=== PATIENT | female | born 1965 | race Two or more races ===

== ENCOUNTER 2018-06-16 08:09 | Outpatient (CLI) | payer OTHER | END 2018-06-16 08:16 | disposition home or self-care (01) | LOC: MRI 08:09 | DX: M17.11 Unilateral primary osteoarthritis, right knee (principal); M17.12 Unilateral primary osteoarthritis, left knee; M22.41 Chondromalacia patellae, right knee | CPT/HCPCS: 73718 ==

== ENCOUNTER 2018-08-02 14:42 | Outpatient (CLI) | payer OTHER | END 2018-08-02 14:54 | disposition home or self-care (01) | LOC: RAD 14:42 | DX: M54.2 Cervicalgia (principal); M54.5 Low back pain ==